=== PATIENT | male | born 1995 | race African-American/Black ===

== ENCOUNTER 2024-03-06 13:09 | Emergency (ER) | payer SELFPAY ==
[2024-03-06] VITALS (29 sets, daily range): BP systolic 99–119; BP diastolic 30–69; PULSE 60–94; RESP 0–26; TEMP 36.8; O2SAT 91–100
--- NOTE | 2024-03-06 13:27 | ED.GENADUL_ITS ---
Discharge Plan Disposition Patient Disposition: Home Condition: Stable Discharge Details Clinical Impression: Seizure Primary Care Provider: Alesha,Local ED Provider: Jan Faith Home Meds and New Rx's Prescriptions: New levetiracetam 500 mg tablet 500 mg PO BID Qty: 60 0RF Discharge Instructions Additional Instructions: Your blood work and CAT scan did not show any concerning findings You should not be driving or swimming or bathing by yourself until cleared by your primary care provider or neurologist. You were given a one month prescription for an anti seizure medication which your primary care provider or neurologist should determine if they want you to continue If you have multiple repeated seizures or new symptoms such as difficulty breathing return to the emergency department for reevaluation HPI General Mode of arrival: EMS . Date/Time Provider Initiated Documentation: 03/06/24 13:11 . Information obtained by: EMS . History of Present Illness 28 year old M presents to the emergency department with the chief complaint of seizure, described as moderate, and it has been constant. No relieving factors improve symptom(s), No exacerbating factors reported . Patient notes no other symptoms.. Patient did receive the following treatments prior to arrival, none Related Data Home Medications ?Medication ?Instructions ?Recorded ?Confirmed levetiracetam 500 mg tablet 500 mg PO BID #60 tabs 03/06/24 Previous Rx's ?Medication ?Instructions ?Recorded levetiracetam 500 mg tablet 500 mg PO BID #60 tabs 03/06/24 General Stated Complaint: Seizure ALVINA: 3 Review of Systems Constitutional Constitutional: Denies fever(s) and Denies weakness Eyes Eyes: Denies loss of vision Cardiovascular Cardiovascular: Denies chest pain and Denies dyspnea Respiratory Respiratory: Denies cough and Denies dyspnea Gastrointestinal Gastrointestinal: Denies abdominal pain, Denies nausea and Denies vomiting Musculoskeletal Musculoskeletal: Denies joint swelling Neurologic Neurologic: Denies loss of vision, Reports convulsions and Denies weakness Exam HENMT Head: normal to inspection Ears: external ears normal General nose exam: external nose normal Mouth: moist mucous membranes Eyes General: appearance normal, both eyes and all related structures Neck Neck: normal visual inspection Resp Effort & Inspection: normal respiratory effort and able to speak in complete sentences Cardio Rate: regular rate Skin General skin exam: no rashes or lesions noted Neuro General: other (post ictal, awkens to voice, no motor deficits) Extrem General: normal to inspection Psych Mental Status: mental status grossly normal Course Vital Signs Vital signs: Vital Signs Temperature 36.8 C 03/06/24 13:14 Pulse 92 H 03/06/24 13:14 Respiratory Rate 17 03/06/24 13:14 Blood Pressure 118/43 L 03/06/24 13:14 Pulse Oximetry 100 03/06/24 13:14 Temperature 36.8 C 03/06/24 13:14 Temperature Source Oral 03/06/24 13:14 Pulse 92 H 03/06/24 13:14 Respiratory Rate 17 03/06/24 13:14 Blood Pressure 118/43 L 03/06/24 13:14 Blood Pressure Position Supine 03/06/24 13:14 Pulse Oximetry 100 03/06/24 13:14 Oxygen Delivery Method Room Air 03/06/24 13:14 Oxygen Flow Rate 0 03/06/24 13:14 Medical Decision Making 27-year-old male with unknown medical history as he is visiting from [place], comes in after he had per EMS report from bystanders seizure-like activity. This resolved by the time EMS got there and has been postictal since. The patient is sleeping when I entered the room but awakens to voice he knows his name and nights in the hospital but is unsure what city he is in currently. He says he has a mild headache otherwise denies any chest pain or difficulty breathing. He is moving all extremities equally. Suspect he did have a seizure, will proceed with CBC, CMP, drug screen, CT head and give a dose of Keppra while studies are pending. labs and imaging unremarkable, patient still fatigued but awakens to voice. Will continue to monitor until he is more alert patient now awake and eating, no acute complaints. Discussed results with him and he will follow-up with his PCP where he lives in the ER, I will provide him a 1 month prescription for Keppra until he can see his PCP or neurologist. Differential Diagnosis Differential Diagnosis: Seizure, electrolyte abnormality Imaging Data Radiologic Study: Attestation: I personally reviewed and interpreted this imaging study as follows: Imaging: CT Scan Radiologist's impression: no acute findings Lab Data Lab results reviewed: Yes I reviewed the patient's lab results. Quality:SDOH Health Related Social Needs: No Data to Display PFSH All Active Problems (Updated 03/06/24 @ 16:03 by Jan Faith MD) Seizure (Acute) Social History Smoking risk assessment performed?: No Do you feel safe at home: Yes Do you feel safe in your relationship?: Yes
[2024-03-06] MEDS: levETIRAcetam 2,000 MG in Normal Saline 100 ML 400 MG IVPB (13:56)
[2024-03-06 14:05] LABS: Abs Immature Grans 0.05 10^3/uL (0.0-0.06); Absolute Basophil Count 0.04 10^3/uL (0.0-0.2); Absolute Eosinophil Count 0.03 10^3/uL (0.0-0.7); Absolute Lymphocyte Count 0.74 10^3/uL (1.2-3.4); Absolute Monocyte Count 0.69 10^3/uL (0.1-0.8); Absolute Neutrophil Count 7.94 10^3/uL (1.2-6.7); Basophils % 0.4 %; Eosinophils % 0.3 %; HCT 43.7 % (40.0-50.0); HGB 15.2 g/dL (13.5-17.5); Immature Grans % 0.5 %; Lymphocytes % 7.8 %; MCH 29.4 pg (27.0-33.0); MCHC 34.8 % (32.0-36.0); MCV 85 fL (80-95); MPV 9.8 fL (8.0-11.0); Monocytes % 7.3 %; Neutrophils % 83.7 %; Platelet Count 258 10^3/uL (130-400); RBC 5.17 10^6/uL (4.36-5.78); RDW 12.4 % (11.8-14.1); RDW-SD 38.5 fL; WBC 9.49 10^3/uL (4.4-10.8)
[2024-03-06 14:22] LABS: ALT 20 U/L (16-63); AST 31 U/L (15-37); Albumin 4.4 g/dL (3.4-5.0); Alkaline Phosphatase 76 U/L (46-116); Anion Gap 11.3 mmol/L (3-11); BUN 11 mg/dL (7-18); CO2 24.7 mmol/L (21.0-32.0); CREATININE 1.4 mg/dL (0.70-1.30); Calcium 9.8 mg/dL (8.5-10.1); Chloride 101 mmol/L (98-107); Estimated GFR 71.09 (mL/min/1.73m2); Glucose 88 mg/dL (74-106); Magnesium 2.8 mg/dL (1.8-2.4); Sodium 137 mmol/L (136-145); Total Protein 8.2 g/dL (6.4-8.2)
[2024-03-06 14:34] LABS: ETHANOL BLOOD < 3.0 mg/dL (<10)
--- NOTE | 2024-03-06 15:27 | DI.CT_ITS ---
Exam(s) CT HEAD WO EXAM: CT HEAD WO CLINICAL HISTORY: seizure. TECHNIQUE: Imaging Protocol: Axial computed tomography images with coronal and sagittal reformatted images were created and reviewed COMPARISON: No exams were available for comparison FINDINGS: Ventricles and Extra axial spaces: Normal in size and morphology for the patient's age. Hemorrhage: None. Cerebral parenchyma: No evidence of acute infarct or mass. Midline shift: None. Brainstem/Cerebellum: Normal. Calvarium: Normal. Visualized Paranasal sinuses:Clear. Mastoids: Clear. Soft Tissues: Unremarkable. ORBITS: Unremarkable. PITUITARY: Not enlarged. IMPRESSION: No acute intracranial process. RADIATION DOSE DELIVERED: Total DLP DATA REPOSITORY: All CT scans at this facility are submitted to the National Radiology Data Registry (NRDR) Dose Index Registry (DIR) with the [employer] ([employer]). RADIATION OPTIMIZATION: All CT scans at this facility use at least one of these dose optimization te chniques: automated exposure control; mA and/or kV adjustment per patient size (includes targeted exa ms where dose is matched to clinical indication); or iterative reconstruction.
--- NOTE | 2024-03-06 16:08 | NUR.NOTE ---
Father, Tanner Primo: [phone] Nursing Note:
--- NOTE | 2024-03-06 16:16 | NUR.NOTE ---
Nursing Note: woke pt and he took a sip of soda and a bite of cracker.
--- NOTE | 2024-03-06 16:47 | NUR.NOTE ---
Nursing Note: Discussed discharge instructions, Rx meds and follow up care with pt. pt verbal understanding. Pt wheeled out to truck.
--- NOTE | 2024-03-07 15:26 | NUR.NOTE ---
Access chart; patient called stating [facility] would not accept a paper RX prescribed. Address is [address] [place] [address] Faith send the RX electronically. If it does not go through he stated I could call it in to this pharmacy. Nursing Note:
== END 2024-03-06 16:46 | disposition home or self-care (01) ==
LOC: ER 16:30
PROVIDERS: Emergency Provider Emergency Medicine
DX: R56.9 Unspecified convulsions (principal)
CPT/HCPCS: 80053; 96365; 99284; 70450; 80320; 83735; 85025; 99283; J1953